=== PATIENT | female | born 1940 | race Hispanic/Latino ===

== ENCOUNTER 2016-09-08 20:52 | Emergency (ER) | payer MEDICAID, MEDICARE ==
[2016-09-08 20:52] VITALS: BMI 27.9
[2016-09-08 21:14] VITALS: TEMP 98.2
[2016-09-08] MEDS ORDERED: Labetalol 5 mg/ml Inj 20ML IVP STA (21:44)
[2016-09-08 22:07] LABS: BASO # 0.1 K/uL (0.0-0.2); BASO % 1.1 % (0.0-2.0); EOS # 0.2 K/uL (0.0-0.7); EOS % 2.4 % (0.0-4.0); HEMATOCRIT 35.2 % (34.0-47.0); LYMPH # 2.6 K/uL (1.0-4.3); LYMPH % 33.8 % (20.0-40.0); MEAN CELL VOLUME 92.1 fl (81.0-99.0); MEAN CORPUSCULAR HEMOGLOBIN 30.8 pg (27.0-31.0); MEAN CORPUSCULAR HGB CONC 33.4 g/dL (33.0-37.0); MEAN PLATELET VOLUME 8.4 fl (7.2-11.7); MONO # 0.7 K/uL (0.0-0.8); MONO % 9.6 % (0.0-10.0); NEUT # 4.1 K/uL (1.8-7.0); NEUT % 53.1 % (50.0-75.0); WHITE BLOOD COUNT 7.7 K/uL (4.8-10.8)
[2016-09-08] MEDS: Labetalol 5 mg/ml Inj 20ML IVP STA (22:17)
--- NOTE | 2016-09-08 22:22 | ED PDOC ---
HPI: Hypertension/Hypotension Time Seen by Provider: 09/08/16 21:18 Chief Complaint (Nursing): High Blood Pressure Chief Complaint (Provider): High Blood Pressure History Per: Patient History/Exam Limitations: no limitations Onset/Duration Of Symptoms: Days (2x) Current Symptoms Are (Timing): Still Present Associated Symptoms: Other (pressure in head). denies: Headache Quality Of Symptoms: Asymptomatic Severity: Moderate Exacerbating Factor(s): Pos: None Additional Complaint(s): 76 year old female with a pertinent medical history of HTN, hypercholesterolemia , and diabetes presents to the ED with complaints of an elevated blood pressure since yesterday. She reports that she checked her blood pressure yesterday and it was elevated. She checked it again today and it was still elevated, so she went to [facility] to and her systolic was 200. She reports feeling pressure in her head but denies having a headache, chest pain, leg swelling, or any other medical complaints. PMD: [place] Past Medical History Reviewed: Historical Data, Nursing Documentation, Vital Signs Vital Signs: Last Vital Signs Temp 98.2 F 09/08/16 21:04 Pulse 85 09/08/16 21:04 Resp 18 09/08/16 21:04 BP 239/106 H 09/08/16 21:04 Pulse Ox 97 09/08/16 21:04 - Medical History PMH: Diabetes, Gall Bladder Disease, HTN, Hypercholesterolemia, Kidney Stones - Surgical History Surgical History: Carotid Endarterectomy, Cholecystectomy - Family History Family History: States: Unknown Family Hx - Social History Alcohol: None Drugs: Denies - Home Medications Home Medications: Ambulatory Orders Medication Instructions Recorded Atorvastatin Calcium [Atorvastatin 20 mg PO DAILY 09/08/16 Calcium] GlipiZIDE [Glucotrol] 10 mg PO BID 09/08/16 Lisinopril [Zestril] 20 mg PO DAILY 09/08/16 - Allergies Allergies/Adverse Reactions: Allergies Allergy/AdvReac Type Severity Reaction Status Date / Time No Known Allergies Allergy Verified 01/19/14 18:50 Review of Systems ROS Statement: Except As Marked, All Systems Reviewed And Found Negative Constitutional: Negative for: Fever Cardiovascular: Negative for: Chest Pain Musculoskeletal: Negative for: Other (leg swelling) Neurological: Positive for: Other (head pressure). Negative for: Headache Physical Exam - Reviewed Nursing Documentation Reviewed: Yes Vital Signs Reviewed: Yes - Physical Exam Appears: Positive for: Well, Non-toxic, No Acute Distress Head Exam: Positive for: ATRAUMATIC, NORMOCEPHALIC Skin: Positive for: Normal Color, Warm, Dry Cardiovascular/Chest: Positive for: Regular Rate, Rhythm Respiratory: Positive for: Normal Breath Sounds. Negative for: Respiratory Distress Extremity: Positive for: Normal ROM. Negative for: Swelling Neurologic/Psych: Positive for: Alert, Oriented (3x) - Laboratory Results Result Diagrams: 09/08/16 21:43 09/08/16 22:33 - ECG O2 Sat by Pulse Oximetry: 97 (RA) Pulse Ox Interpretation: Normal Medical Decision Making Medical Decision Makin:18 Initial impression: 76 year old female with HTN urgency. Rule out intracranial bleed. Initial plan: * CT head w/o contrast * EKG * BMP * CBC * Norvasc 5mg PO * trandate 10mg IVP x2 * reevaluation Scribe Attestation: Documented by Adir Nair, acting as a scribe for Wang Long MD. Provider Scribe Attestation: All medical record entries made by the Scribe were at my direction and personally dictated by me. I have reviewed the chart and agree that the record accurately reflects my personal performance of the history, physical exam, medical decision making, and the department course for this patient. I have also personally directed, reviewed, and agree with the discharge instructions and disposition. Disposition - Clinical Impression Clinical Impression: Uncontrolled hypertension - Patient ED Disposition Is Patient to be Admitted: Transfer of Care Doctor Will See Patient In The: Office Counseled Patient/Family Regarding: Studies Performed, Diagnosis, Need For Followup - Disposition Disposition: Transfer of Care Disposition Time: 23:55 Condition: STABLE Additional Instructions: Please follow up with your primary medical doctor in the morning Instructions: Hypertension (ED) Patient Signed Over To: Austin Conde
[2016-09-08 22:45] LABS: CALCIUM 9.8 mg/dL (8.4-10.2)
--- NOTE | 2016-09-08 22:59 | CT ---
EXAM: CT Head Without Intravenous Contrast CLINICAL HISTORY: 76 years old, female; Signs and symptoms; Other: Hgh blood pressure; Additional info: Headache TECHNIQUE: Axial computed tomography images of the head/brain without intravenous contrast. This CT exam was performed using one or more of the following dose reduction techniques: automated exposure control, adjustment of the mA and/or kV according to patient size, and/or use of iterative reconstruction technique. Coronal and sagittal reformatted images were created and reviewed. COMPARISON: CT - HEAD W/O CONTRAST 01/19/2014 9:01:55 PM FINDINGS: Brain: No acute intracranial hemorrhage. Age-appropriate periventricular white matter disease. No edema. 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 Ventricles: Age-appropriate ventriculomegaly. Bones: No acute displaced fracture. Sinuses: Unremarkable as visualized. No acute sinusitis. Mastoid air cells: Unremarkable as visualized. No mastoid effusion. IMPRESSION: Stable CT examination of the head dating back to 2013 without acute intracranial hemorrhage, or suspicious mass effect.
[2016-09-09 01:25] VITALS: PULSE 68; RESP 16; O2SAT 97
--- NOTE | 2016-09-09 01:42 | ED PDOC ---
- Laboratory Results Result Diagrams: 09/08/16 21:43 09/08/16 22:33 - ECG O2 Sat by Pulse Oximetry: 97 Medical Decision Making Medical Decision Making: Case endorsed from Dr. Long at 0000 pending re-eval. 0130: BP remains stable and patient remains asymptomatic. Patient will f/u at [facility] today. Patient stable for d/c. Dx: uncontrolled hypertension stable Scribe Attestation: Documented by Rip Ochoa acting as a scribe for Austin Conde MD. Provider Scribe Attestation: All medical record entries made by the Scribe were at my direction and personally dictated by me. I have reviewed the chart and agree that the record accurately reflects my personal performance of the history, physical exam, medical decision making, and the department course for this patient. I have also personally directed, reviewed, and agree with the discharge instructions and disposition. Disposition - Clinical Impression Clinical Impression: Uncontrolled hypertension - POA Present On Arrival: None - Disposition Disposition: Routine/Home Disposition Time: 01:30 Condition: STABLE Additional Instructions: Please follow up with your primary medical doctor in the morning Instructions: Hypertension (ED)
[2016-09-09 02:11] VITALS: BP 184/77
--- NOTE | 2016-09-09 13:21 | CARD ---
APPROVED REPORT EKG Measurement Heart [id number] <Conclusion> Normal sinus rhythm Left ventricular hypertrophy with repolarization abnormality Abnormal ECG
== END 2016-09-09 01:34 | disposition home or self-care (01) ==
LOC: H.ER 20:52
DX: I10 Essential (primary) hypertension (principal); E11.9 Type 2 diabetes mellitus without complications; E78.00 Pure hypercholesterolemia, unspecified